=== PATIENT | female | born 1985 | race African-American/Black ===

== ENCOUNTER 2017-11-21 10:56 | Inpatient (IN) | payer OTHER ==
[~2017-11-21] VITALS: Ht 177.8 cm; Wt 65.4 kg
[~2017-11-21 10:56] MED LIST: AMOXICILLIN500 MG PO; ATARAX,VISTARIL50 MG PO; BACTRIM DS 8001 TA1 PO; CARBIDOPA/LEVOD1 TA1 PO; CEPHALEXIN500 M1 PO; HYDROCODONE BIT1 T11 PO; MONISTAT 3 COMB1 KI1; NO DAILY MEDS; PRENTAL 1 PLUS1 TAB; VICODIN 5/500 505 MG PO; ZOFRAN ODT4 MG SL; ZOFRAN4 MG PO
[2017-11-21 11:50] VITALS: BP 128/76
[2017-11-21 13:11] LABS: BASO % 0.2 % (0.0-1.0); EOS # 0.1 10*3/uL (0.0-0.4); EOS % 0.7 % (1.0-4.0); HEMATOCRIT 41.5 % (37.0-47.0); HEMOGLOBIN 13.9 g/dl (12.0-16.0); LYMPH # 1.8 10*3/uL (1.3-4.4); LYMPH % 20.1 % (27.0-41.0); MEAN CELL VOLUME 88.1 fl (81.0-99.0); MEAN CORPUSCULAR HGB 29.5 pg (27.0-31.0); MEAN CORPUSCULAR HGB CONC 33.5 g/dl (33.0-37.0); MEAN PLATELET VOLUME 10.6 fl (9.6-12.3); MONO # 0.7 10*3/uL (0.1-1.0); MONO % 7.1 % (3.0-9.0); NEUT # 6.5 10*3/uL (2.3-7.9); NEUT % 71.7 % (47.0-73.0); PLATELET COUNT AUTOMATED 244 10*3/uL (130-400); RED BLOOD COUNT 4.71 10*6/uL (4.10-5.10); RED CELL DISTRI WIDTH 13.8 % (0-14.5); WHITE BLOOD COUNT 9.1 10*3/uL (4.8-10.8)
[2017-11-21 13:28] LABS: ALBUMIN 3.9 gm/dl (3.1-4.5); ALKALINE PHOSPHATASE 56 U/L (45-117); BUN 12 mg/dl (7-24); CHLORIDE 98 mmol/L (98-107); CREATININE 0.87 mg/dL (0.55-1.02); POTASSIUM 3.8 mmol/L (3.5-5.1); SGOT/AST 68 IU/L (3-35); SGPT/ALT 149 U/L (12-78); SODIUM 135 mmol/L (136-145); TOTAL PROTEIN 7.5 gm/dL (6.4-8.2)
[2017-11-21 13:29] LABS: ETHYL ALCOHOL < 3.0 mg/dl (<3)
[2017-11-21 13:38] LABS: BILIRUBIN NEGATIVE (NEGATIVE); BLOOD NEGATIVE (NEGATIVE); CLARITY CLOUDY (CLEAR); COLOR YELLOW (YELLOW); GLUCOSE NEGATIVE (NEGATIVE); KETONE NEGATIVE (NEGATIVE); LEUKO ESTERASE NEGATIVE (NEGATIVE); NITRITE NEGATIVE (NEGATIVE); UROBILINOGEN >= 8.0 E.U./dl (0.2-1.0)
[2017-11-21 13:51] LABS: BACTERIA 2+; EPITHELIAL CELLS 20-30
[2017-11-21 13:56] LABS: URINE AMPHETAMINES < 1000 (1000ng/ml); URINE BARBITURATES < 200 (200ng/ml); URINE BENZODIAZEPINES > 200 (200ng/ml); URINE CANNABINOIDS (THC) > 50 (50ng/ml); URINE COCAINE > 300 (300ng/ml); URINE METHADONE < 300 (300ng/ml); URINE OPIATES > 300 (300ng/ml); URINE PHENCYCLIDINE < 25 (25ng/ml)
[2017-11-21 16:00] VITALS: BP 132/74
[2017-11-21 20:00] VITALS: BP 116/68
[2017-11-22] VITALS: BP 112/72
[2017-11-22 04:00] VITALS: BP 112/70
[2017-11-22 08:00] VITALS: BP 110/66
[2017-11-22 12:00] VITALS: BP 102/62
[2017-11-22 16:00] VITALS: BP 112/68; BP 143/90
[2017-11-22 20:00] VITALS: BP 112/66
[2017-11-23] VITALS: BP 116/60
[2017-11-23 08:00] VITALS: BP 110/60
[2017-11-23 16:00] VITALS: BP 94/64
[2017-11-23 20:00] VITALS: BP 108/68
[2017-11-24] VITALS: BP 108/63
[2017-11-24 08:00] VITALS: BP 106/66
[2017-11-24] MEDS ORDERED: ROPINIROLE HYD0.5 MG PO (11:56)
[2017-11-24] MEDS ORDERED: ATARAX,VISTARIL50 MG PO (11:56)
[2017-11-24 12:00] VITALS: BP 110/65
== END 2017-11-24 12:33 | disposition home or self-care (01) | DRG 897 ==
LOC: 5E 10:56
PROVIDERS: Internal Medicine
DX: F11.23 Opioid dependence with withdrawal (principal); E87.1 Hypo-osmolality and hyponatremia; F13.10 Sedative, hypnotic or anxiolytic abuse, uncomplicated; F41.9 Anxiety disorder, unspecified; F31.9 Bipolar disorder, unspecified; Z71.6 Tobacco abuse counseling; Z98.51 Tubal ligation status; Z98.891 History of uterine scar from previous surgery; R74.0 Nonspecific elevation of levels of transaminase and lactic acid dehydrogenase [LDH]; F12.10 Cannabis abuse, uncomplicated; F14.10 Cocaine abuse, uncomplicated; F19.10 Other psychoactive substance abuse, uncomplicated; R80.9 Proteinuria, unspecified; D72.810 Lymphocytopenia; R73.9 Hyperglycemia, unspecified; F17.210 Nicotine dependence, cigarettes, uncomplicated

== ENCOUNTER 2019-01-28 20:39 | Emergency (ER) | payer OTHER ==
[~2019-01-28] VITALS: Ht 177.8 cm; Wt 72.6 kg
--- NOTE | ~2019-01-28 | EKG ---
[place], [place] ELECTROCARDIOGRAM REPORT NAME: LILIAM PARIS UNIT #: [id number] ROOM: DOCTOR: EPIPHANY DRAFT REPORT BIRTHDATE: [birth year] [facility] Test Date: 2019-01-28 Test Time: 23:38:09 Pat Name: LILIAM PARIS Department: ER Room: 1 Gender: F [place] [employer]: SS RESP : 1985 Requested By: ADRIEL ANDERSON Order Number: [id number] Reading MD: Williams Bejarano MD Measurements Intervals Prospect Rate: 75 P: 55 CO: 187 QRS: 49 QRSD: 120 T: 41 QT: 393 QTc: 439 Interpretive Statements Sinus rhythm IVCD, consider atypical RBBB Electronically Signed On 01-29-2019 12:02:37 PDT by Williams Bejarano MD CM:EKGRPT:ELECTROCARDIOGRAM REPORT [id number] ADRIEL NARAYAN DRAFT REPORT ADRIEL ANDERSON DO
[~2019-01-28 20:39] MED LIST changes: +ROPINIROLE HYD0.5 MG PO
[2019-01-28 21:15] LABS: BILIRUBIN NEGATIVE (NEGATIVE); BLOOD NEGATIVE (NEGATIVE); CLARITY SL CLOUDY (CLEAR); COLOR YELLOW (YELLOW); GLUCOSE NEGATIVE (NEGATIVE); KETONE NEGATIVE (NEGATIVE); LEUKO ESTERASE 1+ (NEGATIVE); NITRITE NEGATIVE (NEGATIVE); SPECIFIC GRAVITY <= 1.005 (1.005-1.030); UROBILINOGEN 0.2 E.U./dl (0.2-1.0)
[2019-01-28 21:23] LABS: BACTERIA 3+; URINE AMPHETAMINES < 1000 (1000ng/ml); URINE BARBITURATES < 200 (200ng/ml); URINE BENZODIAZEPINES < 200 (200ng/ml); URINE CANNABINOIDS (THC) < 50 (50ng/ml); URINE COCAINE < 300 (300ng/ml); URINE METHADONE < 300 (300ng/ml); URINE OPIATES < 300 (300ng/ml)
[2019-01-28 21:26] LABS: URINE PHENCYCLIDINE < 25 (25ng/ml)
[2019-01-28 21:33] LABS: BASO % 0.3 % (0.0-1.0); EOS % 0.3 % (1.0-4.0); HEMATOCRIT 44.8 % (37.0-47.0); LYMPH # 4.9 10*3/uL (1.3-4.4); LYMPH % 41.2 % (27.0-41.0); MEAN CELL VOLUME 94.7 fl (81.0-99.0); MEAN CORPUSCULAR HGB 31.7 pg (27.0-31.0); MEAN CORPUSCULAR HGB CONC 33.5 g/dl (33.0-37.0); MEAN PLATELET VOLUME 10.5 fl (9.6-12.3); MONO # 0.5 10*3/uL (0.1-1.0); MONO % 4.5 % (3.0-9.0); NEUT # 6.3 10*3/uL (2.3-7.9); NEUT % 53.4 % (47.0-73.0); PLATELET COUNT AUTOMATED 348 10*3/uL (130-400); RED BLOOD COUNT 4.73 10*6/uL (4.10-5.10); RED CELL DISTRI WIDTH 12.7 % (0-14.5); WHITE BLOOD COUNT 11.8 10*3/uL (4.8-10.8)
[2019-01-28 21:45] LABS: ALBUMIN 4.2 gm/dl (3.1-4.5); ALKALINE PHOSPHATASE 67 U/L (45-117); BUN 11 mg/dl (7-24); CHLORIDE 111 mmol/L (98-107); CREATININE 1.27 mg/dL (0.55-1.02); POTASSIUM 3.6 mmol/L (3.5-5.1); SGOT/AST 32 IU/L (3-35); SGPT/ALT 53 U/L (12-78); SODIUM 145 mmol/L (136-145); TOTAL PROTEIN 8.4 gm/dL (6.4-8.2)
[2019-01-28 21:49] LABS: ACETAMINOPHEN (TYLENOL) < 5.0 ug/ml (10-30); TROPONIN I < 0.015 ng/ml (<0.045)
[2019-01-28 21:51] LABS: THYROID STIM HORMONE (HS) 0.523 uIU/ml (0.358-4.75)
== END 2019-01-29 01:01 | disposition home or self-care (01) ==
LOC: ED 20:39
PROVIDERS: Emergency Medicine
DX: T40.1X1A Poisoning by heroin, accidental (unintentional), initial encounter (principal); R40.20 Unspecified coma; F10.129 Alcohol abuse with intoxication, unspecified; F14.90 Cocaine use, unspecified, uncomplicated; F12.90 Cannabis use, unspecified, uncomplicated; F11.90 Opioid use, unspecified, uncomplicated; F17.200 Nicotine dependence, unspecified, uncomplicated; Y90.8 Blood alcohol level of 240 mg/100 ml or more; Y92.89 Other specified places as the place of occurrence of the external cause

== ENCOUNTER 2019-08-27 12:51 | Inpatient (IN) | payer OTHER ==
[~2019-08-27] VITALS: Ht 177.8 cm; Wt 89.4 kg
--- NOTE | 2019-08-27 14:20 | NUR ---
PATIENT MEETS [facility]. CINA=16. PATIENT WANTS TO FOLLOW UP WITH [facility] FOR HER AFTERCARE PLAN. FRANKLYN LLANOS B.A. CRABBING MACHINE OPERATOR
--- NOTE | 2019-08-27 14:30 | NUR ---
NVTime: 1430 A 34 year old FEMALE admitted to under services of BLANCA VARGAS DO. Pt. arrived via wheel chair from [place]. Chief complaint: OPIATE ABUSE. MAGNUS VIVEROS.
--- NOTE | 2019-08-27 15:11 | NUR ---
PATIENT REFUSES FLU VACCINE.
[2019-08-27 15:13] VITALS: BP 118/72
--- NOTE | 2019-08-27 15:14 | NUR ---
NO HOME MEDS PER PT.
[2019-08-27 15:28] LABS: BASO % 0.4 % (0.0-1.0); EOS % 0.5 % (1.0-4.0); HEMATOCRIT 43.9 % (37.0-47.0); HEMOGLOBIN 14.4 g/dl (12.0-16.0); LYMPH # 2.4 10*3/uL (1.3-4.4); LYMPH % 29.5 % (27.0-41.0); MEAN CELL VOLUME 92.8 fl (81.0-99.0); MEAN CORPUSCULAR HGB 30.4 pg (27.0-31.0); MEAN CORPUSCULAR HGB CONC 32.8 g/dl (33.0-37.0); MEAN PLATELET VOLUME 10.6 fl (9.6-12.3); MONO # 0.5 10*3/uL (0.1-1.0); MONO % 5.9 % (3.0-9.0); NEUT # 5.2 10*3/uL (2.3-7.9); NEUT % 63.5 % (47.0-73.0); PLATELET COUNT AUTOMATED 288 10*3/uL (130-400); RED BLOOD COUNT 4.73 10*6/uL (4.10-5.10); RED CELL DISTRI WIDTH 12.1 % (0-14.5); WHITE BLOOD COUNT 8.2 10*3/uL (4.8-10.8)
[2019-08-27 15:45] LABS: ALBUMIN 3.9 gm/dl (3.1-4.5); ALKALINE PHOSPHATASE 58 U/L (45-117); BUN 24 mg/dl (7-24); CHLORIDE 106 mmol/L (98-107); CREATININE 0.94 mg/dL (0.55-1.02); PHOSPHOROUS 2.6 mg/dL (2.5-4.9); POTASSIUM 4.4 mmol/L (3.5-5.1); SGOT/AST 21 IU/L (3-35); SGPT/ALT 40 U/L (12-78); SODIUM 138 mmol/L (136-145); TOTAL PROTEIN 7.8 gm/dL (6.4-8.2)
[2019-08-27 16:00] VITALS: BP 116/57
[2019-08-27 17:15] LABS: BILIRUBIN NEGATIVE (NEGATIVE); BLOOD 2+ (NEGATIVE); CLARITY CLEAR (CLEAR); COLOR YELLOW (YELLOW); GLUCOSE NEGATIVE (NEGATIVE); KETONE NEGATIVE (NEGATIVE); LEUKO ESTERASE NEGATIVE (NEGATIVE); NITRITE NEGATIVE (NEGATIVE); PH 6.5 (5.0-9.0); SPECIFIC GRAVITY 1.015 (1.005-1.030)
[2019-08-27 17:17] LABS: URINE AMPHETAMINES < 1000 (1000ng/ml); URINE BARBITURATES < 200 (200ng/ml); URINE BENZODIAZEPINES < 200 (200ng/ml); URINE CANNABINOIDS (THC) < 50 (50ng/ml); URINE COCAINE > 300 (300ng/ml); URINE METHADONE < 300 (300ng/ml); URINE OPIATES > 300 (300ng/ml)
--- NOTE | 2019-08-27 17:18 | NUR ---
URINES COLLECTED AND SENT PER ORDER. ROUTINE SUBUTEX ADMINISTERED AT THIS TIME. PT ALSO REQUESTED PO ROBAXIN PER PRN ORDER FOR C/O MUSCLE ACHES. WILL MONITOR EFFECTIVENESS.
[2019-08-27 17:22] LABS: URINE PHENCYCLIDINE < 25 (25ng/ml)
[2019-08-27 17:25] LABS: BACTERIA TRACE
[2019-08-27 17:26] LABS: RBC 0-2 rbc/hpf (0-2)
[2019-08-27 20:00] VITALS: BP 103/46
--- NOTE | 2019-08-27 20:30 | NUR ---
24 HR chart check completed.
--- NOTE | 2019-08-27 21:00 | NUR ---
PATIENT DECLINES TEST STATING SHE HAS HAD A TUBAL
--- NOTE | 2019-08-27 21:25 | NUR ---
Patient displaying withdrawal symptoms, including: irritability, anxiousness, restlessness and agitation. Scheduled/PRN medications provided, SEE EMAR. Will continue to monitor medication effectiveness.
--- NOTE | 2019-08-27 21:30 | NUR ---
PATIENT 1 PPD SMOKER, NO ORDERS. DR MORAN PRESENT ON FLOOR AND INFORMED OF PATIENT'S REQUESTS, NEW ORDERES RECEIVED
--- NOTE | 2019-08-27 23:21 | NUR ---
Patient displaying withdrawal symptoms, including: irritability, anxiousness, restlessness and agitation. Scheduled/PRN medications provided, SEE EMAR Will continue to monitor medication effectiveness.
[2019-08-28] VITALS: BP 107/74
--- NOTE | 2019-08-28 00:30 | NUR ---
Patient resting. Responding to scheduled medications with fewer complaints of pain and anxiety.
[2019-08-28 04:00] VITALS: BP 110/52
--- NOTE | 2019-08-28 06:30 | NUR ---
Patient resting. Responding to scheduled medications with fewer complaints of pain and anxiety.
[2019-08-28 08:00] VITALS: BP 99/79
--- NOTE | 2019-08-28 09:39 | NUR ---
C/O RESTLESS LEGS AND ANXIETY. GIVEN REQUIP AND VISTARIL. WILL CONT TO MONITOR. CALL LIGHT IN REACH.
--- NOTE | 2019-08-28 10:39 | NUR ---
PT JUWAN ALVARADO.
--- NOTE | 2019-08-28 11:27 | NUR ---
PATIENT IS GOING TO [facility] FOR HER AFTERCARE PLAN FOR OUTPATIENT TREATMENT. PATIENT IS SCHEDULED FOR August AT 9AM. PATIENT AGREES AND UNDERSTANDS HER AFTERCARE PLAN. PATIENT HAS TRANSPORTATION HOME ONCE DISCHARGED. FRANKLYN LLANOS B.A. PERFORMANCE IMPROVEMENT ANALYST
[2019-08-28 12:00] VITALS: BP 82/53
[2019-08-28 16:00] VITALS: BP 96/55
[2019-08-28 20:00] VITALS: BP 97/54
--- NOTE | 2019-08-28 20:30 | NUR ---
PATIENT MEDICATED WITH PRNS AVAILABLE, SEE EMAR, FOR C/O OF WITHDRAWAL SYMPTOMS. WILL CONTINUE TO MONITOR
--- NOTE | 2019-08-28 21:30 | NUR ---
PRN GIVEN FOR WITHDRAWAL SYMPTOMS ARE EFFECTIVE.
[2019-08-29] VITALS: BP 91/52
[2019-08-29 08:00] VITALS: BP 98/50
--- NOTE | 2019-08-29 09:24 | NUR ---
PRN'S GIVEN FOR C/O WITHDRAWAL SYMPTOMS. WILL CONT TO MONITOR. CALL LIGHT IN REACH.
[2019-08-29 12:00] VITALS: BP 106/52
[2019-08-29 16:00] VITALS: BP 106/50
[2019-08-29 20:00] VITALS: BP 102/56
--- NOTE | 2019-08-29 20:35 | NUR ---
ROBAXIN FOR MUSCLE ACHES, VISTARIL FOR ANXIETY, AND TRAZODONE FOR INSOMNIA GIVEN PER PATIENT REQUEST. NO OTHER COMPLAINTS AT THIS TIME. WILL ASSESS EFFECTIVENESS OF PRN MEDICATIONS.
--- NOTE | 2019-08-29 21:21 | NUR ---
REQUIP GIVEN PER PATIENT REQUEST FOR COMPLAINTS OF RESTLESS LEGS. WILL ASSESS EFFECTIVENESS.
--- NOTE | 2019-08-29 21:21 | NUR ---
PATIENT STATED PRN MEDICATIONS WERE EFFECTIVE. PATIENT FEELING LESS ANXIOUS AND LESS MUSCLE ACHES.
--- NOTE | 2019-08-29 23:05 | NUR ---
24 HR chart check completed.
[2019-08-30] VITALS: BP 96/53
--- NOTE | 2019-08-30 | NUR ---
PT SLEEPING, NO DISTRESS NOTED. CALL LIGHT WITHIN REACH, WILL MONITOR
--- NOTE | 2019-08-30 06:47 | NUR ---
NOTIFIED DR. CRISTOBAL PATIENT REFUSED LAB WORK
[2019-08-30 08:00] VITALS: BP 85/43; BP 90/50
[2019-08-30] MEDS ORDERED: ATARAX,VISTARIL50 MG PO (10:24)
[2019-08-30] MEDS ORDERED: ZOFRAN 4 MG ED2 TAB PO (10:24)
--- NOTE | 2019-08-30 11:46 | NUR ---
DISCHARGED AT THIS TIME. VERBALIZED UNDERSTANDING OF DISCHARGE INSTRUCTIONS.
[2019-08-31 09:39] LABS: HEPATITIS C AB >11.0 (0.0-0.9)
== END 2019-08-30 11:46 | disposition home or self-care (01) | DRG 773 ==
LOC: 4E 12:51 → 5E 13:09
PROVIDERS: Student in an Organized Health Care Education/Training Program; ADMIT Family Medicine
DX: F11.23 Opioid dependence with withdrawal (principal); F14.10 Cocaine abuse, uncomplicated; F41.9 Anxiety disorder, unspecified; F31.9 Bipolar disorder, unspecified; Z98.51 Tubal ligation status

== ENCOUNTER 2019-10-09 10:36 | Inpatient (IN) | payer OTHER ==
[~2019-10-09] VITALS: Ht 177.8 cm; Wt 86.6 kg
[~2019-10-09 10:36] MED LIST changes: +ZOFRAN 4 MG ED2 TAB PO
[2019-10-09 11:40] VITALS: BP 114/58
--- NOTE | 2019-10-09 11:40 | NUR ---
Time: 1139 A 34 year old FEMALE admitted to under services of BLANCA VARGAS DO. Pt. arrived via ambulatory from [place]. Chief complaint: HEROINE AND COCAINE WITHDRAWAL. HERNANDO GALINDO
--- NOTE | 2019-10-09 11:43 | NUR ---
PATIENT MEETS [facility]. CINA=15. PATIENT IS GOING TO FOLLOW UP WITH [facility] PL[facility]. FRANKLYN LLANOS B.A. ACID CORRECTION HAND
[2019-10-09 12:00] VITALS: BP 114/58
--- NOTE | 2019-10-09 13:00 | NUR ---
IN ROOM TO GIVE PATIENT MEDS. PT STATES SHE DOES NOT WANT MEDS AT THIS TIME. MEDS MARKED REFUSED.
[2019-10-09 13:02] LABS: BASO % 0.4 % (0.0-1.0); EOS # 0.1 10*3/uL (0.0-0.4); EOS % 0.9 % (1.0-4.0); HEMATOCRIT 42.2 % (37.0-47.0); HEMOGLOBIN 13.7 g/dl (12.0-16.0); LYMPH # 2.3 10*3/uL (1.3-4.4); LYMPH % 30.1 % (27.0-41.0); MEAN CELL VOLUME 92.5 fl (81.0-99.0); MEAN CORPUSCULAR HGB CONC 32.5 g/dl (33.0-37.0); MONO # 0.6 10*3/uL (0.1-1.0); MONO % 7.4 % (3.0-9.0); NEUT # 4.7 10*3/uL (2.3-7.9); NEUT % 61.1 % (47.0-73.0); PLATELET COUNT AUTOMATED 292 10*3/uL (130-400); RED BLOOD COUNT 4.56 10*6/uL (4.10-5.10); RED CELL DISTRI WIDTH 13.2 % (0-14.5); WHITE BLOOD COUNT 7.7 10*3/uL (4.8-10.8)
[2019-10-09 13:05] LABS: BILIRUBIN NEGATIVE (NEGATIVE); CLARITY SL CLOUDY (CLEAR); COLOR YELLOW (YELLOW); GLUCOSE NEGATIVE (NEGATIVE); KETONE NEGATIVE (NEGATIVE)
[2019-10-09 13:06] LABS: BLOOD NEGATIVE (NEGATIVE); LEUKO ESTERASE 2+ (NEGATIVE); NITRITE NEGATIVE (NEGATIVE); UROBILINOGEN 0.2 E.U./dl (0.2-1.0)
[2019-10-09 13:15] LABS: MUCOUS 1+
[2019-10-09 13:17] LABS: ALBUMIN 3.6 gm/dl (3.1-4.5); ALKALINE PHOSPHATASE 58 U/L (45-117); BUN 24 mg/dl (7-24); CHLORIDE 108 mmol/L (98-107); CREATININE 0.98 mg/dL (0.55-1.02); ETHYL ALCOHOL < 3.0 mg/dl (<3); POTASSIUM 3.9 mmol/L (3.5-5.1); SGOT/AST 36 IU/L (3-35); SGPT/ALT 49 U/L (12-78); SODIUM 141 mmol/L (136-145); TOTAL PROTEIN 7.4 gm/dL (6.4-8.2)
[2019-10-09 13:18] LABS: URINE AMPHETAMINES < 1000 (1000ng/ml); URINE BARBITURATES < 200 (200ng/ml); URINE BENZODIAZEPINES < 200 (200ng/ml); URINE CANNABINOIDS (THC) > 50 (50ng/ml); URINE COCAINE > 300 (300ng/ml); URINE METHADONE < 300 (300ng/ml); URINE OPIATES > 300 (300ng/ml)
[2019-10-09 13:20] LABS: BETA-HCG, QUANT < 1.0 mIU/mL (1-3)
[2019-10-09 13:20] LABS: URINE PHENCYCLIDINE < 25 (25ng/ml)
--- NOTE | 2019-10-09 13:22 | NUR ---
PATIENT REFUSES EKG AT THIS TIME.
[2019-10-09 16:00] VITALS: BP 100/50
--- NOTE | 2019-10-09 17:00 | NUR ---
PT STATES SHE WANTS SUBUTEX NOW. PT INFORMED THAT SHE REFUSED HER DOSE OF SUBUTEX AND THE NEXT DOSE CAN BE GIVEN AT 2200. PRN MEDS OFFERED BUT PT HAS NO STATED COMPLAINTS. RESPIRATIONS ARE EASY AND REGULAR, NO S/S OF DISTRESS OR PAIN. BED IN LOWEST LOCKED POSITION AND CALL LIGHT WITHIN REACH. WILL CONTINUE TO MONITOR.
--- NOTE | 2019-10-09 19:45 | NUR ---
PATIENT ASSESSMENT COMPLETED AT THIS TIME WITHOUT INCIDENT, PATIENT LYING IN BED IN A POSITION OF COMFORT PATIENT DENIES ANY NEEDS OR DISTRESS AT THIS TIME. CALL LIGHT WITHIN REACH, WILL CONTINUE TO MONITOR.
[2019-10-09 20:00] VITALS: BP 96/51
--- NOTE | 2019-10-09 20:20 | NUR ---
24 HOUR CHART CHECK COMPLETED
--- NOTE | 2019-10-09 22:15 | NUR ---
SUBUTEX GIVEN AT THIS TIME ORDERED.
--- NOTE | 2019-10-09 22:25 | NUR ---
PATIENT REQUESTING MEDICATIONS FOR ANXIETY, RESTLESS LEG, ANXIETY AND ABDOMINAL PAIN/ MUSCLE SPASMS. SEE EMAR FOR MEDICATION ADMINISTRATION.
[2019-10-10] VITALS: BP 106/52
--- NOTE | 2019-10-10 | NUR ---
Patient resting. Responding to scheduled medications with fewer complaints of pain and anxiety.
--- NOTE | 2019-10-10 04:00 | NUR ---
Patient resting quietly with no c/o discomfort. Respirations easy and regular. Vital signs stable. No overt distress. DANNIELLE CURIEL
[2019-10-10 08:00] VITALS: BP 100/48
[2019-10-10 12:00] VITALS: BP 115/89
[2019-10-10 16:00] VITALS: BP 100/49
[2019-10-10 20:00] VITALS: BP 96/42
--- NOTE | 2019-10-10 20:00 | NUR ---
Patient resting. Responding to scheduled medications with fewer complaints of pain and anxiety.
[2019-10-11] VITALS: BP 106/50
--- NOTE | 2019-10-11 04:15 | NUR ---
Patient resting. Responding to scheduled medications with fewer complaints of pain and anxiety.
[2019-10-11 08:00] VITALS: BP 97/58
--- NOTE | 2019-10-11 09:08 | NUR ---
MEDICATED WITH PRN PO REQUIP FOR RESTLESS LEGS.
[2019-10-11 12:00] VITALS: BP 90/50
--- NOTE | 2019-10-11 12:27 | NUR ---
Patient resting. Responding to scheduled and prn medications with fewer complaints of pain and anxiety.
--- NOTE | 2019-10-11 13:40 | NUR ---
MEDICATED WITH PRN PO ROBAXIN AND VISTARIL FOR MUSCLE CRAMPS AND ANXIETY.
--- NOTE | 2019-10-11 14:30 | NUR ---
Patient resting. Responding to prn medications with fewer complaints of pain and anxiety.
[2019-10-11 16:00] VITALS: BP 115/66
--- NOTE | 2019-10-11 19:54 | NUR ---
IN TO ASSESS PATIENT, PATIENT PLEASANT AND COOPERATIVE. DENIES ANY NEEDS AT THIS TIME, JUST REQUESTING NGUYEN. CALL LIGHT WITHIN REACH, WILL MONITOR
[2019-10-11 20:00] VITALS: BP 96/63
--- NOTE | 2019-10-11 20:31 | NUR ---
24 HR chart check completed.
--- NOTE | 2019-10-11 21:09 | NUR ---
PRN REQUIP, TRAZADONE, VISTARIL AND ROBAXIN GIVEN FOR PT COMPLAINTS OF RESTLESS LEGS, SLEEPLESSNESS, BODY ACHES AND ANXIETY. CALL LIGHT WITHIN REACH, WILL MONITOR
--- NOTE | 2019-10-11 22:30 | NUR ---
PRN MEDICATION APPEARS EFFECTIVE, PT SLEEPING
[2019-10-12] VITALS: BP 91/46
--- NOTE | 2019-10-12 01:25 | NUR ---
PATIENT CONTINUES TO SLEEP, NO DISTRESS NOTED. CALL LIGHT WITHIN REACH, WILL MONITOR
[2019-10-12] MEDS ORDERED: ATARAX,VISTARIL50 MG PO (09:21)
[2019-10-12] MEDS ORDERED: ZOFRAN 4 MG ED2 TAB PO (09:21)
--- NOTE | 2019-10-12 09:38 | NUR ---
Discharge instructions reviewed with patient/family. Patient receptive and verbalizes understanding. Follow-up care arranged. Written instructions given to patient/family. PATIENT AMBULATORY OFF FLOOR AT THIS TIME. KRISHAN CUELLO
== END 2019-10-12 09:38 | disposition home or self-care (01) | DRG 773 ==
LOC: 5E 10:36
PROVIDERS: Internal Medicine; ADMIT Internal Medicine
DX: F11.23 Opioid dependence with withdrawal (principal); F41.9 Anxiety disorder, unspecified; F13.230 Sedative, hypnotic or anxiolytic dependence with withdrawal, uncomplicated; G25.81 Restless legs syndrome; F17.210 Nicotine dependence, cigarettes, uncomplicated; F14.23 Cocaine dependence with withdrawal; F12.10 Cannabis abuse, uncomplicated; F19.10 Other psychoactive substance abuse, uncomplicated; F32.9 Major depressive disorder, single episode, unspecified; Z98.51 Tubal ligation status; Z71.6 Tobacco abuse counseling

== ENCOUNTER 2019-11-07 05:45 | Emergency (ER) | payer OTHER ==
[~2019-11-07] VITALS: Ht 177.1 cm; Wt 86.2 kg
== END 2019-11-07 06:14 | disposition left against medical advice (07) ==
LOC: ED 05:45
DX: T40.1X1A Poisoning by heroin, accidental (unintentional), initial encounter (principal); F31.9 Bipolar disorder, unspecified; F17.200 Nicotine dependence, unspecified, uncomplicated; Z79.899 Other long term (current) drug therapy; Y92.89 Other specified places as the place of occurrence of the external cause

== ENCOUNTER 2020-01-02 03:38 | Emergency (ER) | payer OTHER ==
[~2020-01-02] VITALS: Ht 177.8 cm; Wt 86.2 kg
[2020-01-02 04:40] LABS: BASO % 0.3 % (0.0-1.0); EOS # 0.1 10*3/uL (0.0-0.4); EOS % 0.7 % (1.0-4.0); LYMPH # 3.7 10*3/uL (1.3-4.4); LYMPH % 36.8 % (27.0-41.0); MEAN CELL VOLUME 91.4 fl (81.0-99.0); MEAN CORPUSCULAR HGB 29.4 pg (27.0-31.0); MEAN CORPUSCULAR HGB CONC 32.2 g/dl (33.0-37.0); MEAN PLATELET VOLUME 9.6 fl (9.6-12.3); MONO # 0.7 10*3/uL (0.1-1.0); MONO % 6.6 % (3.0-9.0); NEUT # 5.6 10*3/uL (2.3-7.9); NEUT % 55.3 % (47.0-73.0); PLATELET COUNT AUTOMATED 345 10*3/uL (130-400); RED BLOOD COUNT 4.05 10*6/uL (4.10-5.10); RED CELL DISTRI WIDTH 14.7 % (0-14.5)
[2020-01-02 04:52] LABS: BUN 21 mg/dl (7-24); CHLORIDE 110 mmol/L (98-107); POTASSIUM 3.8 mmol/L (3.5-5.1); SODIUM 142 mmol/L (136-145)
== END 2020-01-02 04:30 | disposition left against medical advice (07) ==
LOC: ED 03:38
PROVIDERS: Emergency Medicine Emergency Medical Services
DX: S16.1XXA Strain of muscle, fascia and tendon at neck level, initial encounter (principal); F31.9 Bipolar disorder, unspecified; F41.9 Anxiety disorder, unspecified; F17.200 Nicotine dependence, unspecified, uncomplicated; V89.2XXA Person injured in unspecified motor-vehicle accident, traffic, initial encounter; Y93.89 Activity, other specified; Y92.89 Other specified places as the place of occurrence of the external cause; Y99.8 Other external cause status

== ENCOUNTER 2020-01-14 18:18 | Emergency (ER) | payer OTHER ==
[~2020-01-14] VITALS: Ht 177.8 cm; Wt 83.9 kg
== END 2020-01-15 03:58 | disposition left against medical advice (07) ==
LOC: ED 18:18
DX: T40.1X1A Poisoning by heroin, accidental (unintentional), initial encounter (principal); F17.210 Nicotine dependence, cigarettes, uncomplicated; F12.90 Cannabis use, unspecified, uncomplicated; F14.90 Cocaine use, unspecified, uncomplicated; Y92.89 Other specified places as the place of occurrence of the external cause

== ENCOUNTER 2020-07-18 21:56 | Emergency (ER) | payer OTHER ==
[~2020-07-18] VITALS: Ht 170.1 cm; Wt 100.2 kg
== END 2020-07-18 22:26 | disposition left against medical advice (07) ==
LOC: ED 21:56
DX: T40.1X1A Poisoning by heroin, accidental (unintentional), initial encounter (principal); R47.81 Slurred speech; F31.9 Bipolar disorder, unspecified; F41.9 Anxiety disorder, unspecified; F17.200 Nicotine dependence, unspecified, uncomplicated; Z79.899 Other long term (current) drug therapy; Z98.890 Other specified postprocedural states; Z98.51 Tubal ligation status; Z53.29 Procedure and treatment not carried out because of patient's decision for other reasons; Y92.89 Other specified places as the place of occurrence of the external cause

== ENCOUNTER → 2024-05-06 | Outpatient (CLI) | payer OTHER ==
[2024-05-06 12:35] LABS: BASO % 0.2 % (0.0-1.0); EOS % 0.4 % (1.0-4.0); HEMATOCRIT 39.4 % (37.0-47.0); LYMPH # 2.6 10*3/uL (1.3-4.4); LYMPH % 25.7 % (27.0-41.0); MEAN CELL VOLUME 91.6 fl (81.0-99.0); MEAN CORPUSCULAR HGB 30.9 pg (27.0-31.0); MEAN CORPUSCULAR HGB CONC 33.8 g/dl (33.0-37.0); MONO # 0.6 10*3/uL (0.1-1.0); NEUT # 6.8 10*3/uL (2.3-7.9); NEUT % 67.4 % (47.0-73.0); PLATELET COUNT AUTOMATED 323 10*3/uL (130-400); RED CELL DISTRI WIDTH 13.8 % (0-14.5)
[2024-05-06 13:12] LABS: ALKALINE PHOSPHATASE 69 U/L (46-116); BUN 15 mg/dl (9-23); CHLORIDE 105 mmol/L (98-107); CHOLESTEROL 236 mg/dL (<200); LDL CHOLESTEROL 151 mg/dL (9-159); POTASSIUM 3.8 mmol/L (3.4-5.1); SGPT/ALT 37 U/L (5-49); TRIGLYCERIDES 94 mg/dl (<150)
[2024-05-06 14:17] LABS: VITAMIN D, 25-HYDROXY 31.7 ng/mL (30-100)
== END | disposition home or self-care (01) ==
LOC: LAB 12:19
PROVIDERS: ATTEND Nurse Practitioner
DX: Z51.81 Encounter for therapeutic drug level monitoring (principal)